=== PATIENT | male | born 1930 | race Caucasian/White ===

== ENCOUNTER → 2018-09-29 | Outpatient (CLI) | payer MEDICARE, OTHER ==
[~2018-09-29] MED LIST: ACLI400A2 INH; AMIO200T PO; ANAS1TAB PO; ASPI-621 PO; BUDE10.22 INH; CLOP75TA52 PO; FLUT1DIS3 INH; FURO10VI37 IV; FURO40TA6 PO; LEVO100T PO; LEVO750T26 PO; LISI-167 PO; LISI5TAB7 PO; METO25TA4 PO; METO50TA82 PO; NPH,100V SQ-INSULIN; PANT40TA3 PO; POTA20TA89 PO; RANI150T4 PO; SIMV40TA PO; TAMS-11 PO; TRIA1TAB5 PO
== END | disposition home or self-care (01) ==
LOC: CFH 11:43
PROVIDERS: ATTEND Nurse Practitioner Primary Care
DX: M85.88 Other specified disorders of bone density and structure, other site (principal); Z86.39 Personal history of other endocrine, nutritional and metabolic disease
CPT/HCPCS: 77080

== ENCOUNTER → 2018-12-26 | Outpatient (CLI) | payer MEDICARE, OTHER ==
[~2018-12-26] MED LIST changes: -ASPI-621 PO; +ASPI81TA45 PO
== END | disposition home or self-care (01) ==
LOC: CFH 13:08
PROVIDERS: ATTEND Internal Medicine Cardiovascular Disease
DX: I08.3 Combined rheumatic disorders of mitral, aortic and tricuspid valves (principal); I11.9 Hypertensive heart disease without heart failure; E78.5 Hyperlipidemia, unspecified; I25.2 Old myocardial infarction
CPT/HCPCS: 93306